=== PATIENT | male | born 1980 | race Hispanic/Latino ===

== ENCOUNTER 2016-08-08 10:40 | Outpatient (CLI) | payer OTHER, SELFPAY ==
[2016-08-08 12:49] LABS: #Eosinphils 0.7 thou/uL (0.0-0.7); #Lymphocytes 2.9 thou/uL (1.20-3.40); #Monocytes 0.7 thou/uL (0.11-0.59); %Basophils 0.6 % (0.0-1.0); %Eosinophils 8.3 % (0.0-10.0); %Monocytes 8.1 % (0.0-10.0); Hematocrit 49.6 % (42.0-52.0); Red Blood Cell (RBC) Count 5.62 mill/uL (4.70-6.10); White Blood Cell (WBC) Count 8.3 thou/uL (4.8-10.8)
[2016-08-08 12:55] LABS: ALT (SGPT) 44 U/L (0-55); AST (SGOT) 27 U/L (5-34); Alkaline Phosphatase 78 U/L (40-150); Anion Gap 17 mmol/L (10-20); BUN (Urea Nitrogen) 10 mg/dL (8.9-20.6); Bilirubin, Total 0.6 mg/dL (0.2-1.2); Calc. Creatinine Clearance 0 mL/min (70-130); Calcium 9.2 mg/dL (7.8-10.44); Carbon Dioxide 24 mmol/L (22-29); Chloride 106 mmol/L (98-107); Estimated GFR-MDRD Greater than 90; LDL Cholesterol, Calculated 128 mg/dL; Protein, Total 7.6 g/dL (6.0-8.3)
== END 2016-08-08 10:41 | disposition home or self-care (01) ==
LOC: HPCALD 10:40
PROVIDERS: ATTEND Physician Assistant
DX: Z00.00 Encounter for general adult medical examination without abnormal findings (principal)
CPT/HCPCS: 36415; 80053; 80061; 84443; 85025

== ENCOUNTER → 2019-12-30 | Emergency (ER) | payer SELFPAY ==
[~2019-12-30] MED LIST: Adacel (T-DAP) 0.5 ML SYRINGE ONE
--- NOTE | 2019-12-30 18:10 | RAD ---
RIGHT HAND THREE VIEWS: 12/30/19 No fracture or joint abnormality was appreciated. All bones appeared intact. IMPRESSION: No acute finding. POS: HOME
== END ==
LOC: BURERS 08:26
DX: S61.212A Laceration without foreign body of right middle finger without damage to nail, initial encounter (principal); S61.214A Laceration without foreign body of right ring finger without damage to nail, initial encounter; Z23 Encounter for immunization; W26.8XXA Contact with other sharp object(s), not elsewhere classified, initial encounter
CPT/HCPCS: 90471; 90715